=== PATIENT | male | born 1980 | race Caucasian/White ===

== ENCOUNTER 2019-09-09 18:12 | Emergency (ER) | payer OTHER ==
[~2019-09-09] VITALS: Ht 188 cm; Wt 90.7 kg
--- NOTE | 2019-09-09 18:15 | NUR ---
Placed in room 05 . Placed on youth nutritional monitor, blood pressure machine and pulse oximeter. To gown for exam. Side rails up.
--- NOTE | 2019-09-09 18:20 | NUR ---
pt arrives w/ ETOH withdrawels. Reports not drinking alcohol for a weeks months, however, he recently began binge drinking. Per pt's daughter he had a seizure this am. However, he does not recall having a seizure. Seizure precautions in place
[2019-09-09 18:23] VITALS: BP_SYST 153
--- NOTE | 2019-09-09 18:27 | NUR ---
Dr Patten at bedside examining patient
[2019-09-09] MEDS ORDERED: LORazepam 2 MG/ML VIAL IVP ONE (18:30)
[2019-09-09] MEDS ORDERED: NACL 0.9% 1,000 ML IV ONE (18:30)
--- NOTE | 2019-09-09 18:39 | NUR ---
# 22 gauge angiocath placed to right hand. Use of asceptic technique. Opsite placed over site. Blood return noted. Blood for lab drawn from site. Flushed with 10 cc of normal saline. No evidence of infiltration noted. Patient tolerated well.
[2019-09-09] MEDS ORDERED: ONDANSETRON HCL 4 MG/2 ML VIAL IVP ONE (18:45)
--- NOTE | 2019-09-09 18:52 | NUR ---
1L NS bolus infusing as ordered.
--- NOTE | 2019-09-09 18:52 | NUR ---
Medicated with Ativan and Zofran as ordered.
--- NOTE | 2019-09-09 19:09 | NUR ---
Care of patient endorsed to TIM Dougherty. Pt resting in bed in stable condition
--- NOTE | 2019-09-09 19:34 | NUR ---
PATIENT REPORTS GIRLFRIEND WILL PICK HIM UP. INFORMED PATIENT TO CALL SOMEONE FOR [employer].
[2019-09-09 20:25] VITALS: BP_SYST 116
--- NOTE | 2019-09-09 20:25 | NUR ---
Patient given written and verbal discharge instructions and verbalizes understanding. ER MD discussed with patient the results and treatment provided. Patient in stable condition. ID arm band removed. IV catheter removed intact and dressing applied, no active bleeding. Rx of Ativan and Zofran given. Patient educated on pain management and to follow up with PMD. Pain Scale 0/10Opportunity for questions provided and answered. Medication side effect fact sheet provided.
== END 2019-09-09 20:25 | disposition home or self-care (01) ==
LOC: SED 18:12
DX: F10.239 Alcohol dependence with withdrawal, unspecified (principal); Y90.9 Presence of alcohol in blood, level not specified
CPT/HCPCS: 96374; 96375; 99284; J2060; J2405; J7030